=== PATIENT | male | born 1970 | race Caucasian/White ===

== ENCOUNTER 2017-08-01 22:35 | Emergency (ER) | payer OTHER ==
[~2017-08-01] VITALS: Ht 188 cm; Wt 127.0 kg
[~2017-08-01 22:35] MED LIST: CYCL10 PO; Naprosyn500 MG PO; Percocet 10-321 EACH PO; Ultram50 MG PO
[2017-08-01] MEDS ORDERED: MORP15ER PO (23:04)
[2017-08-01] MEDS ORDERED: OXYC10ER (23:04)
== END 2017-08-01 23:34 | disposition home or self-care (01) ==
LOC: ER 22:35
DX: N48.6 Induration penis plastica (principal); F17.210 Nicotine dependence, cigarettes, uncomplicated; Z79.899 Other long term (current) drug therapy; Z79.1 Long term (current) use of non-steroidal anti-inflammatories (NSAID)
CPT/HCPCS: 99282

== ENCOUNTER 2018-05-08 04:39 | Inpatient (IN) | payer OTHER ==
[~2018-05-08] VITALS: Ht 185.4 cm; Wt 122.9 kg
[~2018-05-08 04:39] MED LIST changes: +MORP15ER PO; +OXYC10ER
[2018-05-08 07:12] LABS: BASOPHILS ABSOLUTE AUTO 0.04 K/mm3 (0.00-0.23); BASOPHILS PERCENT AUTO 0 % (0-2); EOSINOPHILS ABSOLUTE AUTO 0.15 K/mm3 (0.00-0.68); EOSINOPHILS PERCENT AUTO 1 % (0-6); Hematocrit 44.9 % (37.0-53.0); Hemoglobin 15.1 g/dL (13.5-17.5); IMMATURE GRAN ABSOLUTE AUTO 0.04 K/mm3 (0.00-0.10); IMMATURE GRAN PERCENT AUTO 0 % (0-1); LYMPHOCYTES ABSOLUTE AUTO 2.17 K/mm3 (0.84-5.20); LYMPHOCYTES PERCENT AUTO 18 % (21-46); MONOCYTES PERCENT AUTO 10 % (4-13); Mean Corpuscular HGB 28.2 pg (26.0-34.0); Mean Corpuscular HGB Conc 33.6 g/dL (31.5-36.5); Mean Corpuscular Volume 84 fL (80-100); Mean Platelet Volume 9.6 fL (9.1-12.4); NEUTROPHILS ABSOLUTE AUTO 8.39 K/mm3 (1.96-9.15); NEUTROPHILS PERCENT AUTO 70 % (41-73); Platelet Count 252 K/mm3 (150-400); RDW Coefficient Variation 13.1 % (11.7-14.2); RDW Standard Deviation 39.7 fL (35.1-46.3); Red Blood Cell Count 5.36 M/mm3 (4.30-5.90); White Blood Cell Count 11.99 K/mm3 (4.00-11.30)
[2018-05-08 07:28] LABS: Alanine Aminotransfer (ALT/SGP 25 U/L (12-78); Albumin, Blood 3.3 g/dL (3.4-5.0); Albumin/Globulin Ratio 0.8 (0.8-1.8); Alk Phos 70 U/L (50-136); Anion Gap 8 mmol/L (6-16); Aspartate Aminotrans (AST/SGOT 13 U/L (12-37); Bilirubin, Total 0.3 mg/dL (0.1-1.0); Blood Urea Nitrogen 10 mg/dL (8-24); Bun/Creatinine Ratio 13.2 (12.0-20.0); CO2, Blood 26 mmol/L (21-32); Calcium, Blood 8.8 mg/dL (8.5-10.1); Chloride, Blood 103 mmol/L (98-108); Creatinine, Blood 0.76 mg/dL (0.60-1.20); Globulin, Blood 4.4 g/dL (2.2-4.0); Glomerular Filtration Rate >60 (60-); Glucose, Blood 93 mg/dL (70-99); Potassium, Blood 3.6 mmol/L (3.5-5.5); Sodium, Blood 137 mmol/L (136-145); Total Protein, Blood 7.7 g/dL (6.4-8.2)
[2018-05-08] MEDS ORDERED: Advil Pm Liqui1 EACH (15:04)
--- NOTE | 2018-05-08 15:22 | NUR ---
DEPRESSED PT VERBALIZED FEELING VERY DEPRESSED. STATES WOULD NEVER HARM SELF "BECAUSE I'M [employer]." STATED HAS BEEN DIAGNOSED W/CANCER. NOTIFIED DR PATEL; NO NEW ORDERS REGARDING DEPRESSION. ORDERED SOCIAL SERVICE CONSULT. PT HAS NO PCP. ORDERED PALLIATIVE CARE CONSULT. PT RESTING W/EYES CLOSED AT THIS TIME. CALL LIGHT IN REACH.
--- NOTE | 2018-05-08 16:52 | NUR ---
WARM WATER SOAK WARM WATER SOAK PER ORDERS TO L RING FINGER. PT SITTING ON EDGE OF BED. CALL LIGHT IN REACH.
--- NOTE | 2018-05-08 17:15 | NUR ---
SUMMARY PT ARRIVED TO UNIT FROM ED THIS AFTERNOON. EDEMA TO L RING FINGER W/LACERATION NOTED AT 2ND JOINT FROM TIP ON PALMAR SIDE OF HAND. PT RATED PAIN 10/10 UPON ARRIVAL TO UNIT. MEDICATED PER ORDERS FOR PAIN, REPORTED PAIN IMPROVED TO 8/10 W/MOVEMENT. SOAKED IN WARM WATER PER ORDERS, PATTED DRY AND PLACED BANDAID TO WOUND. PT INDEPENDENT IN ROOM. REPORTED FEELING DEPRESSED DUE TO 'S DX OF CANCER. REPORTED TO DR PATEL. PLACED PALLIATIVE CARE AND SOCIAL SERVICE CONSULT. PT PLEASANT AND COOPERATIVE. TEARFUL AT TIMES.
--- NOTE | 2018-05-08 21:20 | NUR ---
LEFT HAND SOAKED IN WARM WATER FOR 20 MINUTES THEN DRIED AND FRESH BANDAID PLACED. C/O PAIN 10/10 IN LEFT HAND. WILL MEDICATE PER E-MAR. SAFETY MEASURES IN PLACE. WILL CONTINUE TO MONITOR.
--- NOTE | 2018-05-09 01:56 | NUR ---
LEFT HAND SOAKED IN WARM WATER FOR 20 MINUTES THEN DRIED AND BANDAID APPLIED. WILL CONTINUE TO MONITOR.
[2018-05-09 05:29] LABS: BASOPHILS ABSOLUTE AUTO 0.02 K/mm3 (0.00-0.23); BASOPHILS PERCENT AUTO 0 % (0-2); EOSINOPHILS ABSOLUTE AUTO 0.15 K/mm3 (0.00-0.68); EOSINOPHILS PERCENT AUTO 2 % (0-6); Hematocrit 38.3 % (37.0-53.0); Hemoglobin 12.6 g/dL (13.5-17.5); IMMATURE GRAN ABSOLUTE AUTO 0.02 K/mm3 (0.00-0.10); IMMATURE GRAN PERCENT AUTO 0 % (0-1); LYMPHOCYTES ABSOLUTE AUTO 1.84 K/mm3 (0.84-5.20); LYMPHOCYTES PERCENT AUTO 22 % (21-46); MONOCYTES ABSOLUTE AUTO 0.84 K/mm3 (0.16-1.47); MONOCYTES PERCENT AUTO 10 % (4-13); Mean Corpuscular HGB 28.7 pg (26.0-34.0); Mean Corpuscular HGB Conc 32.9 g/dL (31.5-36.5); Mean Corpuscular Volume 87 fL (80-100); Mean Platelet Volume 9.5 fL (9.1-12.4); NEUTROPHILS ABSOLUTE AUTO 5.59 K/mm3 (1.96-9.15); NEUTROPHILS PERCENT AUTO 66 % (41-73); Platelet Count 187 K/mm3 (150-400); RDW Coefficient Variation 12.9 % (11.7-14.2); RDW Standard Deviation 41.4 fL (35.1-46.3); Red Blood Cell Count 4.39 M/mm3 (4.30-5.90); White Blood Cell Count 8.46 K/mm3 (4.00-11.30)
--- NOTE | 2018-05-09 06:21 | NUR ---
RECEIVED CALL FROM LAB STATING THAT PT'S POTASSIUM IS 6.9. LAB CALLED BACK AND INFORMED NURSING THAT A REDRAW WOULD OCCUR. PT'S IVF/IVABX STOPPED AND PIV FLUSHED WITH EASE. AFTER REDRAW COMPLETED IVABX RESTARTED. SAFETY MEASURES IN PLACE. WILL CONTINUE TO MONITOR.
--- NOTE | 2018-05-09 06:25 | NUR ---
LYING IN LEFT RECUMBANT WITH EYES CLOSED. REMAINS COMFORTABLE AT THIS TIME. NO FURTHER CHANGES SINCE START OF SHIFT. DENIES ANY NEEDS OR WANTS AT THIS TIME. SAFETY MEASURES IN PLACE. WILL GIVE HAND OFF TO ONCOMING SHIFT USING SBAR DURING BEDSIDE REPORT.
[2018-05-09 06:59] LABS: Anion Gap 6 mmol/L (6-16); Blood Urea Nitrogen 11 mg/dL (8-24); Bun/Creatinine Ratio 16.5 (12.0-20.0); CO2, Blood 28 mmol/L (21-32); Calcium, Blood 8.1 mg/dL (8.5-10.1); Chloride, Blood 106 mmol/L (98-108); Creatinine, Blood 0.67 mg/dL (0.60-1.20); Glomerular Filtration Rate >60 (60-); Glucose, Blood 92 mg/dL (70-99); Sodium, Blood 140 mmol/L (136-145)
--- NOTE | 2018-05-09 08:40 | NUR ---
PERFORMING WARM WATER SOAK.
--- NOTE | 2018-05-09 17:42 | NUR ---
SUMMARY NO ACUTE CHANGES T/O SHIFT. DR HAIRSTON ATTEMPTED TO PERFORM BEDSIDE I&D BUT PT COULD NOT TOLERATE. DR HAIRSTON WAS ABLE TO OPEN WOUND SITE AND SOAKED IN COOL WATER. PLACED WET TO DRY DRESSING PER DR HAIRSTON INSTRUCTION. PT TO BE NPO AT [place] FOR POSSIBLE I&D TOMORROW. SPOUSE AT BEDSIDE.
[2018-05-09 22:39] LABS: Vancomycin, Trough 13.4 ug/mL (5.0-10.0)
--- NOTE | 2018-05-10 07:26 | NUR ---
AMBULATING IN HALLS AT THIS TIME. REMAINS COMFORTABLE WITH NO FURTHER CHANGES SINCE START OF SHIFT. DENIES ANY NEEDS OR WANTS AT THIS TIME. SAFETY MEASURES IN PLACE. WILL GIVE HAND OFF TO ONCOMING SHIFT USING SBAR DURING BEDSIDE REPORT.
--- NOTE | 2018-05-10 15:52 | NUR ---
Wolfgang was open and welcoming. He told me about his 's recurrent cancer dx. She has a poor prognosis. He tells me that she is his first priority. He is concerned about their living situation. Apparently, his family is living in a poorly functioning camper trailer without heat. Wolfgang is adamant he will not ask for help from State or local agencies. He became tearful during prayer, and we then spoke at length about his emotions. I provided gentle pet counselor and spiritual direction. We had a good rapport. Wolfgang would benefit from continued spiritual support. I will continue to see him as schedule permits.
--- NOTE | 2018-05-10 17:18 | NUR ---
SHIFT SUMMARY PT DID NOT HAVE TO GO TO THE OR TODAY PER DR HAIRSTON. PT'S PAIN HAS BEEN WELL CONTROLLED. PT FOLLOWS INSTRUCTIONS FOR HOT SOAKS ROUTINELY. OUT TO SMOKE TWICE. PT PLEASANT AND COOPERATIVE.
--- NOTE | 2018-05-11 05:47 | NUR ---
PT VSS T/O NIGHT. PT REP LESS PAIN/SWELLING TO L RING FINGER. PT REP STRENGTH/MOBILITY SLIGHTLY IMPROVED. PT SOAKING WOUND AT BEDSIDE, NO SIG DRNG NOTED. IV ABX CONT PER ORDERS. PT NPO PER ORDERS FOR POSS OR TODAY. PT USING CALL LIGHT FOR ASSISTANCE, WILL CONT TO MONITOR UNTIL REP GIVEN TO ONCOMING RN.
[2018-05-11 06:46] LABS: Vancomycin, Trough 22.3 ug/mL (5.0-10.0)
--- NOTE | 2018-05-11 18:00 | NUR ---
SHIFT SUMMARY PT HAS DONE VERY WELL TODAY. ANXIOUS ABOUT TENATIVE DISCHARGE TOMORROW BUT WOUND IS LOOKING BETTER. AFEBRILE. AMBULATING FREQUENTLY. DRINKING AND EATING FREQUQNTLY.
--- NOTE | 2018-05-11 18:08 | NUR ---
Lengthy discussion with Wolfgang and his , Komal. Wolfgang was visibly irritated as he told me about Komal's struggle to find treatment for her cancer. It is unclear to me that his perception of physicians' responses are accurate. Regardless, they are both feeling she has been dismissed as a "lost cause." They believe there is more that can be done. Neither feel they have been told "why" she is no longer a candidate for aggressive treatment. I provided theraputic listening and emotional affirmation. Made several suggestions regarding insisting upon a clear, understandable explaination from Komal's physician's. They both deny any need to reach out for financial/nutritional help from resources in the community. Both express gratitude for being heard and understood. Wolfgang expects to be discharged in AM. I will remain available.
--- NOTE | 2018-05-11 22:24 | NUR ---
PT IS A&O X4. VSS. INDEPEND IN ROOM. SNACKS PROVIDED WITH EVENING MEDS PER PT REQ. HE REPORTS SELF CARE FOR WOUND. DRESSING IS C/D/I. REPORT GIVEN TO ELIGIO MORALES.
--- NOTE | 2018-05-11 23:14 | NUR ---
ASSUMED CARE. PT DOING WELL. MEDICATED FOR PAIN AND STARTED IV ABX. DRESSING CDI. NO C/O. CALL LIGHT IN REACH.
[2018-05-12 06:15] LABS: BASOPHILS ABSOLUTE AUTO 0.05 K/mm3 (0.00-0.23); BASOPHILS PERCENT AUTO 1 % (0-2); EOSINOPHILS ABSOLUTE AUTO 0.28 K/mm3 (0.00-0.68); EOSINOPHILS PERCENT AUTO 3 % (0-6); Hematocrit 44.9 % (37.0-53.0); IMMATURE GRAN ABSOLUTE AUTO 0.02 K/mm3 (0.00-0.10); IMMATURE GRAN PERCENT AUTO 0 % (0-1); LYMPHOCYTES ABSOLUTE AUTO 2.67 K/mm3 (0.84-5.20); LYMPHOCYTES PERCENT AUTO 31 % (21-46); MONOCYTES ABSOLUTE AUTO 0.95 K/mm3 (0.16-1.47); MONOCYTES PERCENT AUTO 11 % (4-13); Mean Corpuscular HGB 28.5 pg (26.0-34.0); Mean Corpuscular HGB Conc 33.4 g/dL (31.5-36.5); Mean Corpuscular Volume 85 fL (80-100); Mean Platelet Volume 9.1 fL (9.1-12.4); NEUTROPHILS ABSOLUTE AUTO 4.53 K/mm3 (1.96-9.15); NEUTROPHILS PERCENT AUTO 53 % (41-73); Platelet Count 249 K/mm3 (150-400); RDW Coefficient Variation 12.6 % (11.7-14.2); RDW Standard Deviation 39.2 fL (35.1-46.3); Red Blood Cell Count 5.26 M/mm3 (4.30-5.90)
[2018-05-12] MEDS ORDERED: Augmentin 875-1 EACH PO (10:42)
[2018-05-12] MEDS ORDERED: OXYC5 PO (10:43)
--- NOTE | 2018-05-12 13:26 | NUR ---
DISCHARGE PT EXCITED FOR DISCHARGE. SCRIPT GIVEN FOR OXYCODONE. ANTIBIOTIC CALLED TO [facility]. PT STATES UNDERSTANDING OF IMPORTANCE OF COMPLETING ANTIBIOTIC COURSE. GAUZE AND COBAN GIVEN. HAND WASHING DISCUSSED. STATES NUMBER TO REACH THEM AT IS [phone] FOR ANY ISSUES.
== END 2018-05-12 13:35 | disposition home or self-care (01) | DRG 558 ==
LOC: ER 04:39 → SURS 04:40 → ER 14:10 → SURS 14:26
PROVIDERS: Emergency Medicine; ADMIT Hospitalist
DX: M65.9 Synovitis and tenosynovitis, unspecified (principal); S61.215A Laceration without foreign body of left ring finger without damage to nail, initial encounter; Y93.E9 Activity, other interior property and clothing maintenance; Y92.009 Unspecified place in unspecified non-institutional (private) residence as the place of occurrence of the external cause; F17.200 Nicotine dependence, unspecified, uncomplicated
CPT/HCPCS: 36415; 73201; 80048; 80053; 80202; 85025; 90471; 90714; 96361; 96365; 96366; 96367; 96375; 96376; 99285-25; G0378; J0295; J2270; J2405; J3010; J3370; J3480; J7030; J7050; Q9967

== ENCOUNTER 2020-06-14 21:24 | Observation (INO) | payer OTHER ==
[~2020-06-14] VITALS: Ht 188 cm; Wt 127.0 kg
[~2020-06-14 21:24] MED LIST changes: +Advil Pm Liqui1 EACH; +Augmentin 875-1 EACH PO; +OXYC5 PO
[2020-06-14] MEDS ORDERED: Prozac40 MG PO (21:45)
[2020-06-14] MEDS ORDERED: TRAZ50 PO (21:45)
[2020-06-14 21:58] LABS: Source, Urine Clean Catch
[2020-06-14 22:08] LABS: Bilirubin, Urine Neg (Neg); Blood, Urine 1+ (Neg); Glucose Qualitative, Urine Neg (Neg); Ketones, Urine Neg (Neg); Leukocyte Esterase, Urine Neg (Neg); Nitrite, Urine Neg (Neg); Protein, Urine Neg (Neg); Specific Gravity, Urine 1.025 (1.003-1.022); Urobilinogen, Urine NORM (Normal)
[2020-06-14 22:16] LABS: BASOPHILS ABSOLUTE AUTO 0.05 K/mm3 (0.00-0.23); BASOPHILS PERCENT AUTO 1 % (0-2); EOSINOPHILS ABSOLUTE AUTO 0.22 K/mm3 (0.00-0.68); EOSINOPHILS PERCENT AUTO 2 % (0-6); Hematocrit 42.8 % (37.0-53.0); Hemoglobin 14.6 g/dL (13.5-17.5); IMMATURE GRAN ABSOLUTE AUTO 0.03 K/mm3 (0.00-0.10); IMMATURE GRAN PERCENT AUTO 0 % (0-1); LYMPHOCYTES ABSOLUTE AUTO 2.58 K/mm3 (0.84-5.20); LYMPHOCYTES PERCENT AUTO 29 % (21-46); MONOCYTES ABSOLUTE AUTO 0.88 K/mm3 (0.16-1.47); MONOCYTES PERCENT AUTO 10 % (4-13); Mean Corpuscular HGB 28.8 pg (26.0-34.0); Mean Corpuscular HGB Conc 34.1 g/dL (31.5-36.5); Mean Corpuscular Volume 84 fL (80-100); Mean Platelet Volume 8.9 fL (9.1-12.4); NEUTROPHILS ABSOLUTE AUTO 5.28 K/mm3 (1.96-9.15); NEUTROPHILS PERCENT AUTO 59 % (41-73); Platelet Count 223 K/mm3 (150-400); RDW Standard Deviation 39.4 fL (35.1-46.3); Red Blood Cell Count 5.07 M/mm3 (4.30-5.90); White Blood Cell Count 9.04 K/mm3 (4.00-11.30)
[2020-06-14 22:18] LABS: U Amphetamine Screen DETECTED; U Barbituate Screen Not Detected; U Benzodiazapine Screen Not Detected; U Buprenorphine Screen Not Detected; U Cannabinoids Screen DETECTED; U Cocaine Screen Not Detected; U Methadone Screen Not Detected; U Methamphetamine Screen DETECTED; U Opiates Screen Not Detected; U Oxycodone Screen Not Detected; U Phencyclidine Screen Not Detected; U Propoxyphene Screen Not Detected
[2020-06-14 22:28] LABS: Appearance, Urine Clear (Clear); Bacteria Not Seen /hpf; Color, Urine Yellow (P-Yellow); Red Blood Cells, Urine 0-2 /hpf (0-2); Squamous Epithelial Cells Not Seen /hpf (Few); White Blood Cells, Urine Not Seen /hpf (0-5)
[2020-06-14 22:41] LABS: Alanine Aminotransfer (ALT/SGP 52 U/L (12-78); Albumin, Blood 3.4 g/dL (3.4-5.0); Albumin/Globulin Ratio 0.9 (0.8-1.8); Alk Phos 92 U/L (50-136); Anion Gap 5 mmol/L (6-16); Aspartate Aminotrans (AST/SGOT 21 U/L (12-37); Bilirubin, Total 0.2 mg/dL (0.1-1.0); Blood Urea Nitrogen 17 mg/dL (8-24); Bun/Creatinine Ratio 23.7 (12.0-20.0); CO2, Blood 26 mmol/L (21-32); Calcium, Blood 9.2 mg/dL (8.5-10.1); Chloride, Blood 109 mmol/L (98-108); Creatinine, Blood 0.72 mg/dL (0.60-1.20); Ethanol (Alcohol), Blood, Med <3 mg/dL; Globulin, Blood 3.7 g/dL (2.2-4.0); Glomerular Filtration Rate >60 (60-); Glucose, Blood 98 mg/dL (70-99); Potassium, Blood 4.3 mmol/L (3.5-5.5); Salicylate <1.7 mg/dL (2.8-20.0); Sodium, Blood 140 mmol/L (136-145); Total Protein, Blood 7.1 g/dL (6.4-8.2)
[2020-06-14 22:42] LABS: Acetaminophen, Random <2.0 ug/mL (10.0-30.0)
[2020-06-15 14:26] LABS: Influenza A, PCR NEGATIVE (NEGATIVE); Influenza B, PCR NEGATIVE (NEGATIVE); Resp Syncytial Virus, PCR NEGATIVE (NEGATIVE); SARS-Cov-2 (COVID-19) PCR, MMC NEGATIVE (NEGATIVE)
== END 2020-06-15 22:30 ==
LOC: ER 21:24 → EOR 22:14
PROVIDERS: Emergency Medicine; Physician Assistant; ADMIT Emergency Medicine
DX: F31.9 Bipolar disorder, unspecified (principal); R45.851 Suicidal ideations; F17.210 Nicotine dependence, cigarettes, uncomplicated
CPT/HCPCS: 0241U; 36415; 80053; 81001; 85025; 96372; 99285; A9270; G0378; G0480; J1630

== ENCOUNTER 2021-02-14 12:17 | Emergency (ER) | payer OTHER ==
[~2021-02-14] VITALS: Ht 188 cm; Wt 127.0 kg
[~2021-02-14 12:17] MED LIST changes: +Prozac40 MG PO; +TRAZ50 PO
[2021-02-14] MEDS ORDERED: IBU800 MG PO (15:02)
[2021-02-14] MEDS ORDERED: Monodox100 MG PO (15:02)
== END 2021-02-14 15:13 | disposition home or self-care (01) ==
LOC: ER 12:17
DX: L02.411 Cutaneous abscess of right axilla (principal); F17.210 Nicotine dependence, cigarettes, uncomplicated
CPT/HCPCS: 10060; 87070; 87075; 87077; 87147; 87186; 87205; 99283-25; A9270

== ENCOUNTER 2021-03-22 12:08 | Emergency (ER) | payer OTHER ==
[~2021-03-22] VITALS: Ht 188 cm; Wt 127.0 kg
[~2021-03-22 12:08] MED LIST changes: +IBU800 MG PO; +Monodox100 MG PO
[2021-03-22] MEDS ORDERED: Ativan1 MG PO (12:35)
[2021-03-22 12:40] LABS: BASOPHILS ABSOLUTE AUTO 0.08 K/mm3 (0.00-0.23); BASOPHILS PERCENT AUTO 1 % (0-2); EOSINOPHILS ABSOLUTE AUTO 0.06 K/mm3 (0.00-0.68); EOSINOPHILS PERCENT AUTO 0 % (0-6); Hematocrit 45.2 % (37.0-53.0); Hemoglobin 15.7 g/dL (13.5-17.5); IMMATURE GRAN ABSOLUTE AUTO 0.08 K/mm3 (0.00-0.10); IMMATURE GRAN PERCENT AUTO 1 % (0-1); LYMPHOCYTES ABSOLUTE AUTO 1.66 K/mm3 (0.84-5.20); LYMPHOCYTES PERCENT AUTO 10 % (21-46); MONOCYTES ABSOLUTE AUTO 1.61 K/mm3 (0.16-1.47); MONOCYTES PERCENT AUTO 9 % (4-13); Mean Corpuscular HGB 28.3 pg (26.0-34.0); Mean Corpuscular HGB Conc 34.7 g/dL (31.5-36.5); Mean Corpuscular Volume 81 fL (80-100); NEUTROPHILS ABSOLUTE AUTO 13.63 K/mm3 (1.96-9.15); NEUTROPHILS PERCENT AUTO 80 % (41-73); Platelet Count 265 K/mm3 (150-400); RDW Coefficient Variation 12.3 % (11.7-14.2); RDW Standard Deviation 36.9 fL (35.1-46.3); Red Blood Cell Count 5.55 M/mm3 (4.30-5.90); White Blood Cell Count 17.12 K/mm3 (4.00-11.30)
[2021-03-22 13:04] LABS: Alanine Aminotransfer (ALT/SGP 37 U/L (12-78); Albumin, Blood 3.6 g/dL (3.4-5.0); Albumin/Globulin Ratio 0.8 (0.8-1.8); Alk Phos 89 U/L (50-136); Anion Gap 7 mmol/L (6-16); Aspartate Aminotrans (AST/SGOT 29 U/L (12-37); Bilirubin, Total 0.4 mg/dL (0.1-1.0); Blood Urea Nitrogen 17 mg/dL (8-24); Bun/Creatinine Ratio 13.9 (12.0-20.0); CO2, Blood 27 mmol/L (21-32); Calcium, Blood 9.8 mg/dL (8.5-10.1); Chloride, Blood 104 mmol/L (98-108); Creatinine, Blood 1.22 mg/dL (0.60-1.20); Globulin, Blood 4.5 g/dL (2.2-4.0); Glomerular Filtration Rate >60 (60-); Glucose, Blood 124 mg/dL (70-99); Potassium, Blood 4.1 mmol/L (3.5-5.5); Sodium, Blood 138 mmol/L (136-145); Total Protein, Blood 8.1 g/dL (6.4-8.2)
[2021-03-22 14:27] LABS: Source, Urine Voided
[2021-03-22 14:32] LABS: Appearance, Urine Clear (Clear); Bilirubin, Urine Neg (Neg); Blood, Urine 5+ (Neg); Color, Urine Yellow (P-Yellow); Glucose Qualitative, Urine Neg (Neg); Ketones, Urine Neg (Neg); Leukocyte Esterase, Urine 1+ (Neg); Nitrite, Urine Neg (Neg); Protein, Urine 1+ (Neg); Urobilinogen, Urine NORM (Normal)
[2021-03-22 14:39] LABS: Bacteria Few /hpf; Mucus Light (0-Heavy); Red Blood Cells, Urine 50-100 /hpf (0-2); Squamous Epithelial Cells Rare /hpf (Few)
[2021-03-22 16:24] LABS: Influenza A, PCR NEGATIVE (NEGATIVE); Influenza B, PCR NEGATIVE (NEGATIVE); Resp Syncytial Virus, PCR NEGATIVE (NEGATIVE)
[2021-03-22 17:04] LABS: SARS-Cov-2 (COVID-19) PCR, MMC POSITIVE (NEGATIVE)
== END 2021-03-22 22:18 | disposition short-term general hospital (02) ==
LOC: ER 12:08
PROVIDERS: Emergency Medicine; Physician Assistant
DX: U07.1 COVID-19 (principal); N13.2 Hydronephrosis with renal and ureteral calculous obstruction; N39.0 Urinary tract infection, site not specified; F17.210 Nicotine dependence, cigarettes, uncomplicated
CPT/HCPCS: 0241U; 36415; 74176; 80053; 81001; 83690; 85025; 87086; 96365; 96375; 96376; 99285-25; J0696; J1170; J1885; J2405; J7030

== ENCOUNTER 2021-03-25 21:43 | Observation (INO) | payer OTHER ==
[~2021-03-25] VITALS: Ht 188 cm; Wt 127.0 kg
[~2021-03-25 21:43] MED LIST changes: +Ativan1 MG PO
[2021-03-25 22:22] LABS: Source, Urine Clean Catch
[2021-03-25 22:30] LABS: Bilirubin, Urine Neg (Neg); Blood, Urine 5+ (Neg); Glucose Qualitative, Urine Neg (Neg); Ketones, Urine 1+ (Neg); Leukocyte Esterase, Urine 2+ (Neg); Nitrite, Urine Pos (Neg); Protein, Urine 4+ (Neg); Urobilinogen, Urine NORM (Normal)
[2021-03-25 22:40] LABS: U Amphetamine Screen DETECTED; U Barbituate Screen Not Detected; U Benzodiazapine Screen DETECTED; U Buprenorphine Screen Not Detected; U Cannabinoids Screen DETECTED; U Cocaine Screen Not Detected; U Methadone Screen Not Detected; U Methamphetamine Screen DETECTED; U Opiates Screen Not Detected; U Oxycodone Screen Not Detected; U Phencyclidine Screen Not Detected; U Propoxyphene Screen Not Detected
[2021-03-25 22:52] LABS: Appearance, Urine Cloudy (Clear); Color, Urine Red (P-Yellow)
[2021-03-25 22:53] LABS: Bacteria Many /hpf; Red Blood Cells, Urine TNTC /hpf (0-2); Squamous Epithelial Cells Rare /hpf (Few)
[2021-03-25 23:21] LABS: BASOPHILS ABSOLUTE AUTO 0.06 K/mm3 (0.00-0.23); BASOPHILS PERCENT AUTO 1 % (0-2); EOSINOPHILS PERCENT AUTO 2 % (0-6); Hematocrit 43.4 % (37.0-53.0); Hemoglobin 14.7 g/dL (13.5-17.5); IMMATURE GRAN ABSOLUTE AUTO 0.03 K/mm3 (0.00-0.10); IMMATURE GRAN PERCENT AUTO 0 % (0-1); LYMPHOCYTES ABSOLUTE AUTO 2.84 K/mm3 (0.84-5.20); LYMPHOCYTES PERCENT AUTO 25 % (21-46); MONOCYTES ABSOLUTE AUTO 1.01 K/mm3 (0.16-1.47); MONOCYTES PERCENT AUTO 9 % (4-13); Mean Corpuscular HGB 28.1 pg (26.0-34.0); Mean Corpuscular HGB Conc 33.9 g/dL (31.5-36.5); Mean Corpuscular Volume 83 fL (80-100); Mean Platelet Volume 9.3 fL (9.1-12.4); NEUTROPHILS ABSOLUTE AUTO 7.32 K/mm3 (1.96-9.15); NEUTROPHILS PERCENT AUTO 64 % (41-73); Platelet Count 254 K/mm3 (150-400); RDW Coefficient Variation 12.5 % (11.7-14.2); RDW Standard Deviation 37.9 fL (35.1-46.3); Red Blood Cell Count 5.24 M/mm3 (4.30-5.90); White Blood Cell Count 11.46 K/mm3 (4.00-11.30)
[2021-03-25 23:54] LABS: Acetaminophen, Random <2.0 ug/mL (10.0-30.0); Alanine Aminotransfer (ALT/SGP 33 U/L (12-78); Albumin, Blood 3.2 g/dL (3.4-5.0); Albumin/Globulin Ratio 0.8 (0.8-1.8); Alk Phos 80 U/L (50-136); Anion Gap 9 mmol/L (6-16); Aspartate Aminotrans (AST/SGOT 21 U/L (12-37); Bilirubin, Total 0.2 mg/dL (0.1-1.0); Blood Urea Nitrogen 17 mg/dL (8-24); Bun/Creatinine Ratio 20.3 (12.0-20.0); CO2, Blood 26 mmol/L (21-32); Calcium, Blood 8.9 mg/dL (8.5-10.1); Chloride, Blood 107 mmol/L (98-108); Creatinine, Blood 0.84 mg/dL (0.60-1.20); Ethanol (Alcohol), Blood, Med <3 mg/dL; Globulin, Blood 4.2 g/dL (2.2-4.0); Glomerular Filtration Rate >60 (60-); Glucose, Blood 109 mg/dL (70-99); Potassium, Blood 3.8 mmol/L (3.5-5.5); Salicylate <1.7 mg/dL (2.8-20.0); Sodium, Blood 142 mmol/L (136-145); Total Protein, Blood 7.4 g/dL (6.4-8.2)
[2021-03-26] MEDS ORDERED: SULFAMETHOXAZO1 EAC1 PO (03:17)
[2021-03-26] MEDS ORDERED: TRAZ50 PO (03:18)
[2021-03-26 03:25] LABS: Influenza A, PCR NEGATIVE (NEGATIVE); Influenza B, PCR NEGATIVE (NEGATIVE); Resp Syncytial Virus, PCR NEGATIVE (NEGATIVE); SARS-Cov-2 (COVID-19) PCR, MMC NEGATIVE (NEGATIVE)
== END 2021-03-26 21:40 ==
LOC: ER 21:43 → EOR 21:44
PROVIDERS: Physician Assistant; ADMIT Student in an Organized Health Care Education/Training Program
DX: F33.9 Major depressive disorder, recurrent, unspecified (principal); F17.210 Nicotine dependence, cigarettes, uncomplicated; Z79.899 Other long term (current) drug therapy
CPT/HCPCS: 0241U; 36415; 80053; 81001; 85025; 87086; 99285; A9270; G0378; G0480; Q3014

== ENCOUNTER 2021-11-14 13:31 | Observation (INO) | payer OTHER ==
[~2021-11-14] VITALS: Ht 188 cm; Wt 127.0 kg
[~2021-11-14 13:31] MED LIST changes: +SULFAMETHOXAZO1 EAC1 PO
[2021-11-14 13:59] LABS: Source, Urine Clean Catch
[2021-11-14 14:02] LABS: Appearance, Urine Hazy (Clear); Bilirubin, Urine Neg (Neg); Blood, Urine 5+ (Neg); Color, Urine Yellow (P-Yellow); Glucose Qualitative, Urine Neg (Neg); Ketones, Urine Neg (Neg); Leukocyte Esterase, Urine 2+ (Neg); Nitrite, Urine Neg (Neg); Protein, Urine 3+ (Neg); Specific Gravity, Urine 1.025 (1.003-1.022); Urobilinogen, Urine NORM (Normal)
[2021-11-14 14:15] LABS: U Amphetamine Screen DETECTED; U Barbituate Screen Not Detected; U Benzodiazapine Screen Not Detected; U Buprenorphine Screen Not Detected; U Cannabinoids Screen DETECTED; U Cocaine Screen Not Detected; U Methadone Screen Not Detected; U Methamphetamine Screen DETECTED; U Opiates Screen Not Detected; U Oxycodone Screen Not Detected; U Phencyclidine Screen Not Detected; U Propoxyphene Screen Not Detected
[2021-11-14 14:20] LABS: Bacteria Mod /hpf; Mucus Mod (0-Heavy); Red Blood Cells, Urine 50-100 /hpf (0-2); Squamous Epithelial Cells Not Seen /hpf (Few)
[2021-11-14 14:24] LABS: BASOPHILS ABSOLUTE AUTO 0.05 K/mm3 (0.00-0.23); BASOPHILS PERCENT AUTO 1 % (0-2); EOSINOPHILS PERCENT AUTO 2 % (0-6); Hematocrit 41.9 % (37.0-53.0); Hemoglobin 13.8 g/dL (13.5-17.5); IMMATURE GRAN ABSOLUTE AUTO 0.03 K/mm3 (0.00-0.10); IMMATURE GRAN PERCENT AUTO 0 % (0-1); LYMPHOCYTES ABSOLUTE AUTO 2.12 K/mm3 (0.84-5.20); LYMPHOCYTES PERCENT AUTO 25 % (21-46); MONOCYTES ABSOLUTE AUTO 0.89 K/mm3 (0.16-1.47); MONOCYTES PERCENT AUTO 11 % (4-13); Mean Corpuscular HGB Conc 32.9 g/dL (31.5-36.5); Mean Corpuscular Volume 82 fL (80-100); Mean Platelet Volume 9.2 fL (9.1-12.4); NEUTROPHILS ABSOLUTE AUTO 5.08 K/mm3 (1.96-9.15); NEUTROPHILS PERCENT AUTO 61 % (41-73); Platelet Count 250 K/mm3 (150-400); RDW Coefficient Variation 13.2 % (11.7-14.2); RDW Standard Deviation 38.8 fL (35.1-46.3); Red Blood Cell Count 5.12 M/mm3 (4.30-5.90); White Blood Cell Count 8.37 K/mm3 (4.00-11.30)
[2021-11-14] MEDS ORDERED: ALPR1 PO (14:28)
[2021-11-14 14:48] LABS: Ethanol (Alcohol), Blood, Med <3 mg/dL; Salicylate <1.7 mg/dL (2.8-20.0)
[2021-11-14 14:53] LABS: Acetaminophen, Random <2.0 ug/mL (10.0-30.0); Alanine Aminotransfer (ALT/SGP 33 U/L (12-78); Albumin, Blood 3.4 g/dL (3.4-5.0); Albumin/Globulin Ratio 0.9 (0.8-1.8); Alk Phos 80 U/L (50-136); Anion Gap 3 mmol/L (6-16); Aspartate Aminotrans (AST/SGOT 16 U/L (12-37); Bilirubin, Total 0.2 mg/dL (0.1-1.0); Blood Urea Nitrogen 20 mg/dL (8-24); Bun/Creatinine Ratio 26.1 (12.0-20.0); CO2, Blood 28 mmol/L (21-32); Calcium, Blood 9.1 mg/dL (8.5-10.1); Chloride, Blood 110 mmol/L (98-108); Creatinine, Blood 0.77 mg/dL (0.60-1.20); Globulin, Blood 3.6 g/dL (2.2-4.0); Glomerular Filtration Rate 109 (60-); Glucose, Blood 112 mg/dL (70-99); Potassium, Blood 4.2 mmol/L (3.5-5.5); Sodium, Blood 141 mmol/L (136-145)
[2021-11-14 15:18] LABS: Influenza A, PCR NEGATIVE (NEGATIVE); Influenza B, PCR NEGATIVE (NEGATIVE); Resp Syncytial Virus, PCR NEGATIVE (NEGATIVE); SARS-Cov-2 (COVID-19) PCR, MMC NEGATIVE (NEGATIVE)
== END 2021-11-15 13:02 | disposition home or self-care (01) ==
LOC: ER 13:31 → EOR 13:32
PROVIDERS: Physician Assistant; ADMIT Student in an Organized Health Care Education/Training Program
DX: F33.3 Major depressive disorder, recurrent, severe with psychotic symptoms (principal); F15.14 Other stimulant abuse with stimulant-induced mood disorder; F17.210 Nicotine dependence, cigarettes, uncomplicated; Z79.899 Other long term (current) drug therapy; Z20.822 Contact with and (suspected) exposure to COVID-19
CPT/HCPCS: 0241U; 36415; 80053; 81001; 85025; 87086; 93005; 93010; 99285-25; A9270; G0378; G0480; Q3014

== ENCOUNTER 2022-05-08 22:15 | Observation (INO) | payer OTHER ==
[~2022-05-08] VITALS: Ht 188 cm; Wt 127.0 kg
[~2022-05-08 22:15] MED LIST changes: +ALPR1 PO
[2022-05-08 23:33] LABS: Source, Urine Clean Catch
[2022-05-09 00:25] LABS: BASOPHILS PERCENT AUTO 1 % (0-2); EOSINOPHILS ABSOLUTE AUTO 0.28 K/mm3 (0.00-0.68); EOSINOPHILS PERCENT AUTO 2 % (0-6); Ethanol (Alcohol), Blood, Med <3 mg/dL; Hemoglobin 11.9 g/dL (13.5-17.5); IMMATURE GRAN ABSOLUTE AUTO 0.05 K/mm3 (0.00-0.10); IMMATURE GRAN PERCENT AUTO 0 % (0-1); LYMPHOCYTES ABSOLUTE AUTO 3.46 K/mm3 (0.84-5.20); LYMPHOCYTES PERCENT AUTO 25 % (21-46); MONOCYTES ABSOLUTE AUTO 1.71 K/mm3 (0.16-1.47); MONOCYTES PERCENT AUTO 12 % (4-13); Mean Corpuscular HGB Conc 31.3 g/dL (31.5-36.5); Mean Corpuscular Volume 83 fL (80-100); Mean Platelet Volume 9.3 fL (9.1-12.4); NEUTROPHILS PERCENT AUTO 59 % (41-73); NRBC ABSOLUTE 0.02 K/mm3 (0.00-0.02); NRBC Auto 0.1 /100 WBC (0.0-0.2); Platelet Count 475 K/mm3 (150-400); RDW Coefficient Variation 15.2 % (11.7-14.2); RDW Standard Deviation 45.8 fL (35.1-46.3); Red Blood Cell Count 4.57 M/mm3 (4.30-5.90); Salicylate 1.9 mg/dL (2.8-20.0)
[2022-05-09 00:29] LABS: Thyroid Stimulating Hormone 0.704 uIU/mL (0.360-4.800)
[2022-05-09 00:41] LABS: Bilirubin, Urine Neg (Neg); Blood, Urine 4+ (Neg); Glucose Qualitative, Urine Neg (Neg); Ketones, Urine Neg (Neg); Leukocyte Esterase, Urine Neg (Neg); Nitrite, Urine Neg (Neg); Protein, Urine 1+ (Neg); Urobilinogen, Urine NORM (Normal)
[2022-05-09 00:49] LABS: Acetaminophen, Random <2.0 ug/mL (10.0-30.0); Alanine Aminotransfer (ALT/SGP 35 U/L (12-78); Albumin, Blood 3.1 g/dL (3.4-5.0); Albumin/Globulin Ratio 0.7 (0.8-1.8); Alk Phos 72 U/L (50-136); Anion Gap 5 mmol/L (6-16); Aspartate Aminotrans (AST/SGOT 24 U/L (12-37); Bilirubin, Total 0.1 mg/dL (0.1-1.0); Blood Urea Nitrogen 9 mg/dL (8-24); Bun/Creatinine Ratio 12.1 (12.0-20.0); CO2, Blood 28 mmol/L (21-32); Calcium, Blood 8.9 mg/dL (8.5-10.1); Chloride, Blood 108 mmol/L (98-108); Creatinine, Blood 0.74 mg/dL (0.60-1.20); Globulin, Blood 4.3 g/dL (2.2-4.0); Glomerular Filtration Rate 110 (60-); Glucose, Blood 118 mg/dL (70-99); Potassium, Blood 3.5 mmol/L (3.5-5.5); Sodium, Blood 141 mmol/L (136-145); Total Protein, Blood 7.4 g/dL (6.4-8.2)
[2022-05-09 01:11] LABS: U Amphetamine Screen DETECTED; U Barbituate Screen Not Detected; U Benzodiazapine Screen Not Detected; U Buprenorphine Screen Not Detected; U Cannabinoids Screen DETECTED; U Cocaine Screen Not Detected; U Methadone Screen Not Detected; U Methamphetamine Screen DETECTED; U Opiates Screen Not Detected; U Oxycodone Screen Not Detected; U Phencyclidine Screen Not Detected; U Propoxyphene Screen Not Detected
[2022-05-09 01:17] LABS: Appearance, Urine Clear (Clear); Color, Urine Yellow (P-Yellow)
[2022-05-09 01:18] LABS: Bacteria Rare /hpf; Squamous Epithelial Cells Rare /hpf (Few); White Blood Cells, Urine 0-2 /hpf (0-5)
[2022-05-09 06:13] LABS: Influenza A, PCR NEGATIVE (NEGATIVE); Influenza B, PCR NEGATIVE (NEGATIVE); Resp Syncytial Virus, PCR NEGATIVE (NEGATIVE); SARS-Cov-2 (COVID-19) PCR, MMC NEGATIVE (NEGATIVE)
== END 2022-05-09 18:57 | disposition home or self-care (01) ==
LOC: ER 22:15 → EOR 22:16
PROVIDERS: Emergency Medicine; ADMIT Student in an Organized Health Care Education/Training Program
DX: F32.A Depression, unspecified (principal); F15.20 Other stimulant dependence, uncomplicated; Z20.822 Contact with and (suspected) exposure to COVID-19
CPT/HCPCS: 0241U; 36415; 80053; 81001; 83605; 84436; 84443; 85025; 86592; 93005; 93010; A9270; G0480; J1885

== ENCOUNTER 2023-01-05 17:45 | Emergency (ER) | payer OTHER ==
[~2023-01-05] VITALS: Ht 188 cm; Wt 108.9 kg
== END 2023-01-05 19:30 | disposition home or self-care (01) ==
LOC: ER 17:45
DX: M19.011 Primary osteoarthritis, right shoulder (principal); F17.200 Nicotine dependence, unspecified, uncomplicated
CPT/HCPCS: 73030; 99284-25

== ENCOUNTER 2023-02-16 04:15 | Emergency (ER) | payer MEDICARE ==
[~2023-02-16] VITALS: Ht 188 cm; Wt 127.0 kg
[2023-02-16 05:20] LABS: BASOPHILS ABSOLUTE AUTO 0.09 K/mm3 (0.00-0.23); BASOPHILS PERCENT AUTO 1 % (0-2); EOSINOPHILS PERCENT AUTO 1 % (0-6); Hematocrit 45.4 % (37.0-53.0); Hemoglobin 15.3 g/dL (13.5-17.5); IMMATURE GRAN ABSOLUTE AUTO 0.04 K/mm3 (0.00-0.10); IMMATURE GRAN PERCENT AUTO 0 % (0-1); LYMPHOCYTES ABSOLUTE AUTO 2.95 K/mm3 (0.84-5.20); LYMPHOCYTES PERCENT AUTO 21 % (21-46); MONOCYTES ABSOLUTE AUTO 1.71 K/mm3 (0.16-1.47); MONOCYTES PERCENT AUTO 12 % (4-13); Mean Corpuscular HGB 29.2 pg (26.0-34.0); Mean Corpuscular HGB Conc 33.7 g/dL (31.5-36.5); Mean Corpuscular Volume 87 fL (80-100); Mean Platelet Volume 9.7 fL (9.1-12.4); NEUTROPHILS PERCENT AUTO 65 % (41-73); Platelet Count 386 K/mm3 (150-400); RDW Coefficient Variation 14.3 % (11.7-14.2); RDW Standard Deviation 45.3 fL (35.1-46.3); Red Blood Cell Count 5.24 M/mm3 (4.30-5.90); White Blood Cell Count 14.09 K/mm3 (4.00-11.30)
[2023-02-16 05:59] LABS: Bun/Creatinine Ratio 17.9 (12.0-20.0); C-REACTIVE PROTEIN, EXT RANGE 0.723 mg/dL (0.000-0.300); Calcium, Blood 8.8 mg/dL (8.5-10.1); Creatinine, Blood 0.73 mg/dL (0.60-1.20)
[2023-02-16 06:12] LABS: Source, Urine Clean Catch
[2023-02-16 06:14] LABS: Appearance, Urine Clear (Clear); Bilirubin, Urine Neg (Neg); Blood, Urine 1+ (Neg); Color, Urine Yellow (P-Yellow); Glucose Qualitative, Urine Neg (Neg); Ketones, Urine Neg (Neg); Leukocyte Esterase, Urine 1+ (Neg); Nitrite, Urine Neg (Neg); Protein, Urine 1+ (Neg); Specific Gravity, Urine 1.025 (1.003-1.022); Urobilinogen, Urine NORM (Normal)
[2023-02-16 06:28] LABS: Squamous Epithelial Cells Rare /hpf (Few); White Blood Cells, Urine 0-2 /hpf (0-5)
[2023-02-16 06:29] LABS: Bacteria Few /hpf
[2023-02-16 06:31] LABS: Mucus Heavy (0-Heavy)
[2023-02-16] MEDS ORDERED: Prednisone50 MG PO (13:25)
[2023-02-16] MEDS ORDERED: Robaxin750 MG PO (13:26)
[2023-02-16] MEDS ORDERED: Norco 7.5-3251 EACH PO (13:26)
[2023-02-16 14:00] VITALS: BP 142/88
[2023-02-17] MEDS ORDERED: DERMACINRX LID1 EACH TD (08:37)
== END 2023-02-16 14:28 | disposition home or self-care (01) ==
LOC: ER 04:15
PROVIDERS: Emergency Medicine
DX: M54.16 Radiculopathy, lumbar region (principal); F17.200 Nicotine dependence, unspecified, uncomplicated
CPT/HCPCS: 72100; 72158; 80048; 81001; 85025; 85651; 86140; 87086; 96374-59; 96375-59; 99284-25; A9270; A9579; J1170; J1885

== ENCOUNTER 2023-02-17 07:03 | Emergency (ER) | payer MEDICARE, OTHER ==
[~2023-02-17] VITALS: Ht 188 cm; Wt 127.0 kg
[~2023-02-17 07:03] MED LIST changes: +Norco 7.5-3251 EACH PO; +Prednisone50 MG PO; +Robaxin750 MG PO
[2023-02-17] MEDS ORDERED: DERMACINRX LID1 EACH TD (08:37)
[2023-02-17 08:45] VITALS: BP 128/78
== END 2023-02-17 08:45 | disposition home or self-care (01) ==
LOC: ER 07:03
DX: M54.16 Radiculopathy, lumbar region (principal); M62.830 Muscle spasm of back; Z79.52 Long term (current) use of systemic steroids; Z79.899 Other long term (current) drug therapy; F17.200 Nicotine dependence, unspecified, uncomplicated
CPT/HCPCS: 96374; 99284-25; A9270; J1885

== ENCOUNTER 2023-02-27 15:48 | Emergency (ER) | payer MEDICARE, OTHER ==
[~2023-02-27] VITALS: Ht 188 cm; Wt 127.0 kg
[~2023-02-27 15:48] MED LIST changes: +DERMACINRX LID1 EACH TD
[2023-02-27 16:51] VITALS: BP 138/92
== END 2023-02-27 19:39 | disposition home or self-care (01) ==
LOC: ER 15:48
DX: S63.502A Unspecified sprain of left wrist, initial encounter (principal); X50.9XXA Other and unspecified overexertion or strenuous movements or postures, initial encounter; F17.200 Nicotine dependence, unspecified, uncomplicated; Z79.899 Other long term (current) drug therapy
CPT/HCPCS: 29125; 73110; 96372-59; 99283-25; J1885

== ENCOUNTER 2024-01-06 01:40 | Observation (INO) | payer MEDICARE, OTHER ==
[~2024-01-06] VITALS: Ht 188 cm; Wt 127.0 kg
[~2024-01-06 01:40] MED LIST changes: +ACET325 PO; +DOXY100 PO; +IBUP400 PO; +LORA.5 PO; +OXAYDO5 M1 PO; +TAMS.4ER PO
[2024-01-06 06:22] LABS: BASOPHILS ABSOLUTE AUTO 0.11 K/mm3 (0.00-0.23); BASOPHILS PERCENT AUTO 1 % (0-2); EOSINOPHILS ABSOLUTE AUTO 0.26 K/mm3 (0.00-0.68); EOSINOPHILS PERCENT AUTO 2 % (0-6); Hematocrit 45.8 % (37.0-53.0); Hemoglobin 15.5 g/dL (13.5-17.5); IMMATURE GRAN ABSOLUTE AUTO 0.03 K/mm3 (0.00-0.10); IMMATURE GRAN PERCENT AUTO 0 % (0-1); LYMPHOCYTES ABSOLUTE AUTO 4.43 K/mm3 (0.84-5.20); LYMPHOCYTES PERCENT AUTO 31 % (21-46); MONOCYTES ABSOLUTE AUTO 1.73 K/mm3 (0.16-1.47); MONOCYTES PERCENT AUTO 12 % (4-13); Mean Corpuscular HGB 28.8 pg (26.0-34.0); Mean Corpuscular HGB Conc 33.8 g/dL (31.5-36.5); Mean Corpuscular Volume 85 fL (80-100); Mean Platelet Volume 9.3 fL (9.1-12.4); NEUTROPHILS ABSOLUTE AUTO 7.57 K/mm3 (1.96-9.15); NEUTROPHILS PERCENT AUTO 54 % (41-73); Platelet Count 422 K/mm3 (150-400); RDW Coefficient Variation 14.5 % (11.7-14.2); RDW Standard Deviation 44.7 fL (35.1-46.3); Red Blood Cell Count 5.38 M/mm3 (4.30-5.90); White Blood Cell Count 14.13 K/mm3 (4.00-11.30)
[2024-01-06 06:43] LABS: Ethanol (Alcohol), Blood, Med <3 mg/dL; Salicylate <1.7 mg/dL (2.8-20.0); Thyroid Stimulating Hormone 0.745 uIU/mL (0.360-4.800); Thyroxine (T4) 10.1 ug/dL (4.5-12.1)
[2024-01-06 06:50] LABS: Alanine Aminotransfer (ALT/SGP 36 U/L (12-78); Albumin, Blood 3.6 g/dL (3.4-5.0); Albumin/Globulin Ratio 0.8 (0.8-1.8); Alk Phos 95 U/L (50-136); Anion Gap 11 mmol/L (3-11); Aspartate Aminotrans (AST/SGOT 30 U/L (12-37); Bilirubin, Total 0.7 mg/dL (0.1-1.0); Blood Urea Nitrogen 14 mg/dL (8-24); Bun/Creatinine Ratio 20.9 (12.0-20.0); CO2, Blood 26 mmol/L (21-32); Calcium, Blood 9.2 mg/dL (8.5-10.1); Chloride, Blood 107 mmol/L (98-108); Creatinine, Blood 0.67 mg/dL (0.60-1.20); Globulin, Blood 4.5 g/dL (2.2-4.0); Glomerular Filtration Rate 112 (60-); Glucose, Blood 101 mg/dL (70-99); Potassium, Blood 3.6 mmol/L (3.5-5.5); Sodium, Blood 140 mmol/L (136-145); Total Protein, Blood 8.1 g/dL (6.4-8.2)
[2024-01-06 06:56] LABS: Acetaminophen, Random <2.0 ug/mL (10.0-30.0)
[2024-01-06] MEDS ORDERED: OLANZapine 10 MG Tab PO ONE (07:15)
[2024-01-06 09:35] LABS: Source, Urine Clean Catch
[2024-01-06 09:45] LABS: Bilirubin, Urine Neg (Neg); Blood, Urine 2+ (Neg); Glucose Qualitative, Urine Neg (Neg); Ketones, Urine 1+ (Neg); Leukocyte Esterase, Urine 1+ (Neg); Nitrite, Urine Neg (Neg); Protein, Urine 2+ (Neg); Urobilinogen, Urine NORM (Normal)
[2024-01-06 09:52] LABS: Appearance, Urine Hazy (Clear); Color, Urine Yellow (P-Yellow)
[2024-01-06 09:53] LABS: Amorphous Light (0-Heavy); Bacteria Rare /hpf; Squamous Epithelial Cells Not Seen /hpf (Few)
[2024-01-06 10:03] LABS: U Amphetamine Screen DETECTED; U Barbituate Screen Not Detected; U Benzodiazapine Screen Not Detected; U Buprenorphine Screen Not Detected; U Cannabinoids Screen DETECTED; U Cocaine Screen DETECTED; U Methadone Screen Not Detected; U Methamphetamine Screen DETECTED; U Opiates Screen Not Detected; U Oxycodone Screen Not Detected; U Phencyclidine Screen Not Detected
[2024-01-06] MEDS ORDERED: TraZODone HCl 50 MG Tab PO ONE (22:15)
[2024-01-07 09:52] VITALS: BP 128/68
[2024-01-07] MEDS ORDERED: Melatonin 3 MG Tab PO PRN (16:20)
[2024-01-07] MEDS ORDERED: TraZODone HCl 50 MG Tab PO PRN (16:25)
[2024-01-07] MEDS ORDERED: OLANZapine ODT 10 MG Tab MM PRN (16:25)
[2024-01-07] MEDS ORDERED: Haloperidol Lactate Inj. 5 MG/ML Injection IM PRN ×2 (16:25)
[2024-01-07] MEDS ORDERED: Haloperidol 5 MG Tab PO PRN (16:25)
[2024-01-07] MEDS ORDERED: OLANZapine 10 MG Vial IM PRN (16:25)
[2024-01-07] MEDS ORDERED: Acetaminophen 325 MG TABLET PO PRN (16:25)
[2024-01-07] MEDS ORDERED: Ibuprofen 600 MG Tab PO PRN (16:30)
[2024-01-07] MEDS ORDERED: Aluminum Hydroxide 320MG/5ML 473 ML PO PRN (16:30)
[2024-01-07] MEDS ORDERED: Mirtazapine 15 MG Tab PO PRN (16:30)
[2024-01-08] MEDS ORDERED: Multivitamins 1 Tab PO SCH (09:00)
== END 2024-01-07 16:10 | disposition other institution (70) ==
LOC: ER 01:40 → EOR 01:41
PROVIDERS: ADMIT Emergency Medicine
DX: F32.A Depression, unspecified (principal); R45.851 Suicidal ideations; F19.10 Other psychoactive substance abuse, uncomplicated; F17.210 Nicotine dependence, cigarettes, uncomplicated; Z79.899 Other long term (current) drug therapy
CPT/HCPCS: 80053; 80320; 81001; 84436; 84443; 85025; 87086; 99285; A9270; G0378; G0480

== ENCOUNTER 2024-01-07 13:01 | Inpatient (IN) | payer MEDICARE, OTHER ==
[~2024-01-07] VITALS: Ht 188 cm; Wt 127.0 kg
[2024-01-07] MEDS ORDERED: Acetaminophen 325 MG TABLET PO PRN (16:40)
[2024-01-07] MEDS ORDERED: Aluminum Hydroxide 320MG/5ML 473 ML PO PRN (16:40)
[2024-01-07] MEDS ORDERED: Ibuprofen 600 MG Tab PO PRN (16:40)
[2024-01-07] MEDS ORDERED: TraZODone HCl 50 MG Tab PO PRN (16:40)
[2024-01-07] MEDS ORDERED: Melatonin 3 MG Tab PO PRN (16:40)
[2024-01-07] MEDS ORDERED: OLANZapine 10 MG Vial IM PRN (16:45)
[2024-01-07] MEDS ORDERED: OLANZapine ODT 10 MG Tab MM PRN (16:45)
[2024-01-07] MEDS ORDERED: Mirtazapine 15 MG Tab PO PRN (16:45)
--- NOTE | 2024-01-07 17:43 | NUR ---
ADMITTED AT 1614 TODAY. NEEDS HYGEINE CARE. HE WILL SHOWER AFTER DINER. CAME IN [place]. STATED HE HAS NO FAMILY AND IS HOMELESS, HIS DAUGHTER CALLED FROM ASSISTED AND IT MADE HIM WORSE. HE CLAIMS HE WAS DOING FENTANYL AND SMOKING WEED. WANTED TO . HE PASSED OUT AND THEN CAME AWAKE IN THE HOSPITAL ON "NARCAN DRIP" HE MUST HAVE HAD AN IV DRIP WITH DOSES OF NARCAN. HIS 4 YEARS AGO. HAS NO HOPE PER PT. WILL CONTINUE TO MONITOR.
[2024-01-07 19:22] VITALS: BP 143/84
--- NOTE | 2024-01-08 04:26 | NUR ---
PT WAS SLEEPING AT START OF SHIFT, BUT WOKE FOR MEDICATIONS AND SNACKS. HYGIENE POOR, BUT WAS ENCOURAGED. PT WAS COOPERATIVE WITH MINIMAL CONVERSATION AND WAS COMPLIANT WITH MEDICATIONS. DENIES SI/HI AND AVH. PT IS CURRENTLY IN BED WITH EYES CLOSED RESTING COMFORTABLY IN NAD. RESPIRATIONS EVEN AND UNLABORED. CHECKS DONE Q15.
[2024-01-08] MEDS ORDERED: Multivitamins 1 Tab PO SCH (09:00)
--- NOTE | 2024-01-08 16:32 | NUR ---
SHIFT SUMMARY: PT COOPERATIVE WITH CARE AND COMPLIANT WITH MEDICATIONS. PT WAS UP FOR MEALS AND SPOKE WITH OT. HE WAS IN HIS ROOM THE MAJORITY OF THE DAY AND APPEARED TO BE SLEEPING.
[2024-01-08] MEDS ORDERED: Nicotine 21 MG PATCH TOP SCH (18:00)
[2024-01-08 20:06] VITALS: BP 145/86
--- NOTE | 2024-01-09 04:14 | NUR ---
PT WAS VISIBLE IN THE [place] WATCHING TELEVISION WITH PEERS. HYGIENE FAIR. PT WAS COMPLIANT WITH MEDICATIONS AND DENIES SI/HI AND AVH, THOUGH HE HAS ADMITTED TO HEARING VOICES IN THE PAST. PT SAYS HE IS FOCUSED ON HIS CHILDREN AND IS INTERESTED IN TATTOO REMOVAL. PROVIDED PT WITH A LIST OF RESOURCES OFFERING FREE TATTOO REMOVAL. PT IS CURRENTLY IN BED WITH EYES CLOSED SLEEPING COMFORTABLY WITH RESPIRATIONS EVEN AND UNLABORED. CHECKS DONE Q15.
[2024-01-09 08:43] VITALS: BP 125/86
[2024-01-09 08:48] VITALS: BP 149/104
[2024-01-09] MEDS ORDERED: buPROPion HCL 150 MG TAB.SR.12H PO SCH (09:00)
--- NOTE | 2024-01-09 11:06 | NUR ---
PT ALERT, ORIENTED AND COOPERATIVE. COMPLIANT WITH MEDICATIONS. DENIES SI, HI OR AVH. DISCUSSED DESIRE TO STOP USING METH AND GET INTO TREATMENT. STATES THAT HE NEEDS TO GET BACK ON HIS REGULAR MEDICATIONS. STATES THAT HE USED TO TAKE 300 MG OF TRAZADONE AND 200 MG OF SEROQUEL AT BEDTIME WELL AN UNKNOWN MEDICATION FOR ANXIETY. PROVIDER NOTIFIED AND NEW ORDERS NOTED. PT PARTICIPATING IN DEPT MILIEU.
[2024-01-09] MEDS ORDERED: Peg 400/Hypromellose/Glycerin 15 DROP/ML BTL BOTHEYES SCH (16:30)
--- NOTE | 2024-01-09 17:23 | NUR ---
SHIFT SUMMARY: PT ALERT, ORIENTED AND COOPERATIVE. DENIED SI, HI OR AVH. SPOKE ON THE PHONE WITH HIS SON. ENGAGED IN UNIT MILIE[place] AND MEALS.
[2024-01-09 20:11] VITALS: BP 138/92
[2024-01-09] MEDS ORDERED: QUEtiapine Fumarate 200 MG Tab PO SCH (21:00)
--- NOTE | 2024-01-10 04:18 | NUR ---
PT IS VISIBLE ON THE UNIT AND INTERACTS APPRORPIATELY WITH PEERS. HYGIENE ADEQUATE. PT IS COMPLIANT WITH MEDICATIONS AND DENIES SI/HI. PT C/O INSOMNIA AND RESTLESS LEGS EVEN AFTER RECEIVING PRNS FOR SLEEP. PT IS CURRENTLY RESTING IN BED WITH EYES CLOSED IN NAD. RESPIRATIONS EVEN AND UNLABORED. CHECKS DONE Q15.
--- NOTE | 2024-01-10 09:06 | NUR ---
PT UP FOR BREAKFAST THIS AM. WENT BACK TO HIS ROOM AND IS LAYING DOWN. HE REQUESTED TO WAIT UNTIL LATER THIS MORNING FOR HIS MEDICATIONS.
[2024-01-10 09:14] VITALS: BP 105/56
--- NOTE | 2024-01-10 13:17 | NUR ---
PT IN WITH ANNA FROM [employer]S AUDITOR.
[2024-01-10] MEDS ORDERED: Propranolol HCL 20 MG TAB PO SCH (16:30)
--- NOTE | 2024-01-10 16:58 | NUR ---
SHIFT SUMMARY: PT ALERT, CALM AND COOPERATIVE. VISITED WITH HIS SON, ARMANDO DURING THE AFTERNOON. NEW RX ORDERS STARTED THIS EVENING. HE ENGAGED WITH DEPT MILIE[facility] AND MEALS. DENIES SI, HI OR AVH.
--- NOTE | 2024-01-11 04:29 | NUR ---
PT IS VISIBLE ON THE UNIT AND INTERACTS APPROPRIATELY WITH PEERS. HYGIENE ADEQUATE. PT HAD A BRIGHT MOOD AND WAS SMILING AND LAUGHING. PT IS COMPLIANT WITH MEDICATIONS AND DENIES SI/HI AND AVH. PT HAD DIFFICULTY FALLING ASLEEP R/T RESTLESS LEGS AND SAID MEDICATION GIVEN FOR IT WAS INEFFECTIVE. PT EVENTUALLY WAS OBSERVED RESTING IN BED WITH EYES CLOSED IN NAD. RESPIRATIONS EVEN AND UNLABORED. CHECKS DONE Q15.
[2024-01-11 12:00] VITALS: BP 120/92
--- NOTE | 2024-01-11 12:27 | NUR ---
PT DENIED SI, HI, ANXIETY, AVH AND PAIN UNLESS HE RAISES HIS ARMS THEN HE HAS SHOULDER PAIN. HE REPORTED HIS MOOD "IT'S FINE." HE APPEARED TO REST IN HIS BED MOST OF THE MORNING. HE GOT UP FOR LUNCH AND IS NOW WATCHING A MOVIE WITH PEERS.
[2024-01-12 03:22] VITALS: BP 143/81
--- NOTE | 2024-01-12 05:21 | NUR ---
Patient spent most of the evening watching TV and socializing with peers. He was cooperative with assessment. He took his medication without issue. He denied new concerns at this time. Plan of care ongoing. He appeared to be sleeping in his bed for 7 hours.
[2024-01-12 08:35] VITALS: BP 136/83
--- NOTE | 2024-01-12 13:17 | NUR ---
Pt Discharge Planning Reached out to pts [facility] Customer Experience Intern- Sonia Ramirez to support in helping get this patient into [facility]. Will be connecting him with his pcp and requesting appointments with [facility]. Pt may have to go to [facility]. SW requested to also give pt opportunity to access grief groups will ensure he has that information when pt leaves.
--- NOTE | 2024-01-12 13:33 | NUR ---
Pt Appointment for Discharge Pt is aassigned to Dr. Burrell, however when calling Dr Rosales he has declined to see this pt due to multiple no shows. I will let his A piano case and bench assembler, Sonia Fuchs know of this. Pt does want outpatient support from [facility] so will have RNs put in discharge to go to [facility] and get wrap around services with them in all areas. Will touch base with Sophia Andrews to see how we can get him a PCP appointment in motion at his [facility] appointment when he d/c's
--- NOTE | 2024-01-12 17:07 | NUR ---
SHIFT SUMMARY: PT ALERT, ORIENTED AND COOPERATIVE WITH CARE. COMPLIANT WITH MEDICATIONS. ENGAGED IN GROUPS, MEALS AND DEPT [facility]. DISCUSSED DISCHARGE PLAN TENTATIVE for 01/12. HE PLANS TO DISCHARGE TO HIS SON'S HOUSE. DENIES SI, HI OR AVH.
[2024-01-12 21:11] VITALS: BP 128/78
[2024-01-12] MEDS ORDERED: rOPINIRole HCl 0.25 MG Tab PO ONE (22:30)
--- NOTE | 2024-01-13 04:54 | NUR ---
Patient spent most of the evening socializing with peers and watching TV. He was cooperative with assessment. He took his scheduled medication and requested PRN for sleep and agitation without issue. He is able to make his needs known. He denied new concerns at this time. Plan of care ongoing. He approached the nurses station at 2004 complaining of restless legs. Provider was contacted and one time order for Requip was administered. He returned to bed and was able to rest for a few hours. He was up at 0130 and 0430 requesting a snack each time. Once he had a small snack, he returned to bed each time. He appeared to be sleeping in his bed for 6 hours.
[2024-01-13 09:01] VITALS: BP 130/78
[2024-01-13] MEDS ORDERED: PROP10 PO (11:49)
[2024-01-13] MEDS ORDERED: BUPR150ER PO (11:49)
[2024-01-13] MEDS ORDERED: QUET200 PO (11:50)
--- NOTE | 2024-01-13 12:28 | NUR ---
PT COOPERATIVE WITH CARE, MED COMPLIANT AND DENIED SI, HI, AVH, PAIN AND ANXIETY. HE RESTED IN BED MOST OF THE MORNING. HE ATE LUNCH AND HAS BEEN OUT IN THE PT MILIE[facility]. PT DISCHARGED WITH ALL OF HIS BELONGINGS FROM SECURITY AND THE ONES STORED ON THE UNIT. DISCHARGE INFORMATION DISCUSSED WITH PT AND PT SIGNED UNDERSTANDING. EDUCATION PROVIDED.
--- NOTE | 2024-01-13 12:48 | NUR ---
Pt DC Patient has been discharged belongings have been returned from the safe and with Security had some personal items they have put away upon entry to hospital. Pt left at [phone]
== END 2024-01-13 12:33 | disposition home or self-care (01) | DRG 885 ==
LOC: BHU 13:01
PROVIDERS: ADMIT Student in an Organized Health Care Education/Training Program
DX: F33.2 Major depressive disorder, recurrent severe without psychotic features (principal); F15.20 Other stimulant dependence, uncomplicated; R45.851 Suicidal ideations; R63.4 Abnormal weight loss
CPT/HCPCS: A9270

== ENCOUNTER 2024-06-06 15:59 | Observation (INO) | payer MEDICARE, OTHER ==
[~2024-06-06] VITALS: Ht 188 cm; Wt 136.1 kg
[~2024-06-06 15:59] MED LIST changes: +BUPR150ER PO; +PROP10 PO; +QUET200 PO
[2024-06-06 16:15] VITALS: BP 141/110
[2024-06-06 16:57] LABS: BASOPHILS ABSOLUTE AUTO 0.06 K/mm3 (0.00-0.23); BASOPHILS PERCENT AUTO 0 % (0-2); EOSINOPHILS ABSOLUTE AUTO 0.28 K/mm3 (0.00-0.68); EOSINOPHILS PERCENT AUTO 2 % (0-6); Hematocrit 45.5 % (37.0-53.0); Hemoglobin 14.9 g/dL (13.5-17.5); IMMATURE GRAN ABSOLUTE AUTO 0.08 K/mm3 (0.00-0.10); IMMATURE GRAN PERCENT AUTO 1 % (0-1); LYMPHOCYTES ABSOLUTE AUTO 2.49 K/mm3 (0.84-5.20); LYMPHOCYTES PERCENT AUTO 14 % (21-46); MONOCYTES PERCENT AUTO 15 % (4-13); Mean Corpuscular HGB 28.9 pg (26.0-34.0); Mean Corpuscular HGB Conc 32.7 g/dL (31.5-36.5); Mean Corpuscular Volume 88 fL (80-100); Mean Platelet Volume 9.5 fL (9.1-12.4); NEUTROPHILS ABSOLUTE AUTO 12.15 K/mm3 (1.96-9.15); NEUTROPHILS PERCENT AUTO 69 % (41-73); Platelet Count 558 K/mm3 (150-400); RDW Coefficient Variation 14.6 % (11.7-14.2); RDW Standard Deviation 46.2 fL (35.1-46.3); Red Blood Cell Count 5.15 M/mm3 (4.30-5.90); White Blood Cell Count 17.66 K/mm3 (4.00-11.30)
[2024-06-06 17:26] LABS: Ethanol (Alcohol), Blood, Med <3 mg/dL; Salicylate <1.7 mg/dL (2.8-20.0)
[2024-06-06 17:28] LABS: Alanine Aminotransfer (ALT/SGP 37 U/L (12-78); Albumin, Blood 3.1 g/dL (3.4-5.0); Albumin/Globulin Ratio 0.8 (0.8-1.8); Alk Phos 74 U/L (50-136); Anion Gap 9 mmol/L (3-11); Aspartate Aminotrans (AST/SGOT 19 U/L (12-37); Bilirubin, Total 0.7 mg/dL (0.1-1.0); Blood Urea Nitrogen 12 mg/dL (8-24); Bun/Creatinine Ratio 17.9 (12.0-20.0); CO2, Blood 31 mmol/L (21-32); Calcium, Blood 8.7 mg/dL (8.5-10.1); Chloride, Blood 106 mmol/L (98-108); Creatinine, Blood 0.67 mg/dL (0.60-1.20); Globulin, Blood 4.1 g/dL (2.2-4.0); Glomerular Filtration Rate 112 (60-); Glucose, Blood 90 mg/dL (70-99); Potassium, Blood 3.8 mmol/L (3.5-5.5); Sodium, Blood 142 mmol/L (136-145); Total Protein, Blood 7.2 g/dL (6.4-8.2)
[2024-06-06 17:48] LABS: Acetaminophen, Random <2.0 ug/mL (10.0-30.0)
[2024-06-06 18:38] LABS: Source, Urine Clean Catch
[2024-06-06 18:45] LABS: Appearance, Urine Clear (Clear); Bilirubin, Urine Neg (Neg); Blood, Urine Neg (Neg); Color, Urine Yellow (P-Yellow); Glucose Qualitative, Urine Neg (Neg); Ketones, Urine Neg (Neg); Leukocyte Esterase, Urine Neg (Neg); Nitrite, Urine Neg (Neg); Protein, Urine 1+ (Neg); Urobilinogen, Urine NORM (Normal)
[2024-06-06 19:09] LABS: U Amphetamine Screen DETECTED; U Barbituate Screen Not Detected; U Benzodiazapine Screen Not Detected; U Buprenorphine Screen Not Detected; U Cannabinoids Screen DETECTED; U Cocaine Screen Not Detected; U Methadone Screen Not Detected; U Methamphetamine Screen DETECTED; U Opiates Screen Not Detected; U Oxycodone Screen Not Detected; U Phencyclidine Screen Not Detected
[2024-06-06 19:18] LABS: Influenza A, PCR NEGATIVE (NEGATIVE); Influenza B, PCR NEGATIVE (NEGATIVE); Resp Syncytial Virus, PCR NEGATIVE (NEGATIVE); SARS-Cov-2 (COVID-19) PCR, MMC NEGATIVE (NEGATIVE)
[2024-06-06] MEDS ORDERED: LORazepam 2 MG/ML 1ML Injection IM ONE (19:55)
[2024-06-07] MEDS ORDERED: TRAZ150T57 PO (22:08)
== END 2024-06-07 21:14 ==
LOC: ER 15:59 → EOR 16:00
PROVIDERS: Student in an Organized Health Care Education/Training Program; ADMIT Student in an Organized Health Care Education/Training Program
DX: T40.412A Poisoning by fentanyl or fentanyl analogs, intentional self-harm, initial encounter (principal); R45.851 Suicidal ideations; F31.9 Bipolar disorder, unspecified; G89.29 Other chronic pain; F17.210 Nicotine dependence, cigarettes, uncomplicated; Z79.899 Other long term (current) drug therapy
CPT/HCPCS: 0241U; 36415; 71045; 80053; 80320; 85025; 93005; 93010; 96372; 99285-25; G0378; G0480; J2060

== ENCOUNTER 2024-09-08 04:19 | Observation (INO) | payer MEDICARE, OTHER ==
[~2024-09-08] VITALS: Ht 188 cm; Wt 136.1 kg
[~2024-09-08 04:19] MED LIST changes: +TRAZ150T57 PO
[2024-09-08 06:57] LABS: BASOPHILS ABSOLUTE AUTO 0.12 K/mm3 (0.00-0.23); BASOPHILS PERCENT AUTO 1 % (0-2); EOSINOPHILS ABSOLUTE AUTO 0.15 K/mm3 (0.00-0.68); EOSINOPHILS PERCENT AUTO 1 % (0-6); Hematocrit 46.4 % (37.0-53.0); Hemoglobin 15.6 g/dL (13.5-17.5); IMMATURE GRAN ABSOLUTE AUTO 0.08 K/mm3 (0.00-0.10); IMMATURE GRAN PERCENT AUTO 0 % (0-1); LYMPHOCYTES ABSOLUTE AUTO 3.47 K/mm3 (0.84-5.20); LYMPHOCYTES PERCENT AUTO 17 % (21-46); MONOCYTES PERCENT AUTO 12 % (4-13); Mean Corpuscular HGB 28.7 pg (26.0-34.0); Mean Corpuscular HGB Conc 33.6 g/dL (31.5-36.5); Mean Corpuscular Volume 86 fL (80-100); Mean Platelet Volume 9.2 fL (9.1-12.4); NEUTROPHILS ABSOLUTE AUTO 13.95 K/mm3 (1.96-9.15); NEUTROPHILS PERCENT AUTO 70 % (41-73); Platelet Count 346 K/mm3 (150-400); RDW Coefficient Variation 14.6 % (11.7-14.2); RDW Standard Deviation 45.5 fL (35.1-46.3); Red Blood Cell Count 5.43 M/mm3 (4.30-5.90); White Blood Cell Count 20.07 K/mm3 (4.00-11.30)
[2024-09-08 07:21] LABS: Ethanol (Alcohol), Blood, Med <3 mg/dL; Salicylate <1.7 mg/dL (2.8-20.0)
[2024-09-08 07:27] LABS: Alanine Aminotransfer (ALT/SGP 36 U/L (12-78); Albumin, Blood 3.5 g/dL (3.4-5.0); Albumin/Globulin Ratio 0.9 (0.8-1.8); Alk Phos 90 U/L (50-136); Anion Gap 9 mmol/L (3-11); Aspartate Aminotrans (AST/SGOT 33 U/L (12-37); Bilirubin, Total 0.8 mg/dL (0.1-1.0); Blood Urea Nitrogen 20 mg/dL (8-24); Bun/Creatinine Ratio 20.7 (12.0-20.0); CO2, Blood 23 mmol/L (21-32); Calcium, Blood 9.4 mg/dL (8.5-10.1); Chloride, Blood 106 mmol/L (98-108); Creatinine, Blood 0.97 mg/dL (0.60-1.20); Globulin, Blood 4.1 g/dL (2.2-4.0); Glomerular Filtration Rate 93 (60-); Glucose, Blood 131 mg/dL (70-99); Potassium, Blood 4.1 mmol/L (3.5-5.5); Sodium, Blood 134 mmol/L (136-145); Total Protein, Blood 7.6 g/dL (6.4-8.2)
[2024-09-08 07:30] LABS: Acetaminophen, Random <2.0 ug/mL (10.0-30.0)
[2024-09-08 09:07] LABS: Source, Urine Voided
[2024-09-08 09:10] LABS: Bilirubin, Urine Neg (Neg); Blood, Urine 3+ (Neg); Glucose Qualitative, Urine Neg (Neg); Ketones, Urine Neg (Neg); Leukocyte Esterase, Urine 2+ (Neg); Nitrite, Urine Neg (Neg); Protein, Urine 3+ (Neg); Urobilinogen, Urine NORM (Normal)
[2024-09-08 09:20] LABS: Appearance, Urine Hazy (Clear); Color, Urine Yellow (P-Yellow)
[2024-09-08 09:24] LABS: U Amphetamine Screen DETECTED; U Barbituate Screen Not Detected; U Benzodiazapine Screen Not Detected; U Buprenorphine Screen Not Detected; U Cannabinoids Screen DETECTED; U Cocaine Screen Not Detected; U Methadone Screen Not Detected; U Methamphetamine Screen DETECTED; U Opiates Screen Not Detected; U Oxycodone Screen Not Detected; U Phencyclidine Screen Not Detected
[2024-09-08 09:27] LABS: Hyaline Casts 50-100 /lpf (0-2); Mucus Mod (0-Heavy); Squamous Epithelial Cells Few /hpf (Few)
[2024-09-08 09:28] LABS: Bacteria Many /hpf; Calcium Oxalate Crystals Few /hpf; Red Blood Cells, Urine 25-50 /hpf (0-2); Spermatozoa Mod /hpf
[2024-09-08] MEDS ORDERED: TraZODone HCl 100 MG Tab PO PRN (15:20)
[2024-09-08] MEDS ORDERED: QUEtiapine Fumarate 200 MG Tab PO SCH (21:00)
[2024-09-08] MEDS ORDERED: OLANZapine 5 MG Tab PO SCH (21:00)
[2024-09-09 08:44] VITALS: BP 110/72
[2024-09-09] MEDS ORDERED: buPROPion HCL 150 MG TAB.SR.12H PO SCH (09:00)
[2024-09-09] MEDS ORDERED: QUETIAPINE FUM PO (12:00)
[2024-09-09] MEDS ORDERED: Benztropine Me0.5 MG PO (12:00)
[2024-09-09] MEDS ORDERED: PROP10 PO (12:00)
[2024-09-09] MEDS ORDERED: TRAZ100 PO (12:00)
== END 2024-09-09 23:00 | disposition home or self-care (01) ==
LOC: ER 04:19 → EOR 13:31
PROVIDERS: ADMIT Emergency Medicine
DX: F15.24 Other stimulant dependence with stimulant-induced mood disorder (principal); F15.229 Other stimulant dependence with intoxication, unspecified; S61.217A Laceration without foreign body of left little finger without damage to nail, initial encounter; S61.215A Laceration without foreign body of left ring finger without damage to nail, initial encounter; W25.XXXA Contact with sharp glass, initial encounter; E86.0 Dehydration; F31.9 Bipolar disorder, unspecified; F17.210 Nicotine dependence, cigarettes, uncomplicated; Z79.899 Other long term (current) drug therapy
CPT/HCPCS: 73120; 80053; 80320; 81001; 85025; 87086; 99285-25; A9270; G0378; G0480

== ENCOUNTER 2024-11-06 00:24 | Emergency (ER) | payer MEDICARE, OTHER ==
[~2024-11-06] VITALS: Ht 188 cm; Wt 136.0 kg
[~2024-11-06 00:24] MED LIST changes: +Benztropine Me0.5 MG PO; +QUETIAPINE FUM PO; +TRAZ100 PO
[2024-11-06 04:32] VITALS: BP 162/92
[2024-11-06] MEDS ORDERED: Trimethoprim/Sulfamethoxazole DS Tab PO ONE (05:05)
[2024-11-06] MEDS ORDERED: SULTRIDS PO (05:07)
== END 2024-11-06 06:00 | disposition home or self-care (01) ==
LOC: ER 00:24
DX: L03.115 Cellulitis of right lower limb (principal); F17.210 Nicotine dependence, cigarettes, uncomplicated; Z59.89 Other problems related to housing and economic circumstances; Z79.899 Other long term (current) drug therapy
CPT/HCPCS: 99282; A9270

== ENCOUNTER 2024-12-23 21:52 | Emergency (ER) | payer MEDICARE, OTHER ==
[~2024-12-23] VITALS: Ht 188 cm; Wt 136.1 kg
[~2024-12-23 21:52] MED LIST changes: +ACET500 PO; +LIDOCAINE1 EACH TOP; +SULTRIDS PO
[2024-12-23 21:59] VITALS: BP 165/103
[2024-12-23] MEDS ORDERED: Ketorolac Tromethamine 15mg Vial IM ONE (22:05)
== END 2024-12-23 23:16 | disposition left against medical advice (07) ==
LOC: ER 21:52
DX: M54.50 Low back pain, unspecified (principal); Z53.20 Procedure and treatment not carried out because of patient's decision for unspecified reasons
CPT/HCPCS: 72100

== ENCOUNTER 2025-04-12 18:15 | Emergency (ER) | payer MEDICARE, OTHER ==
[~2025-04-12] VITALS: Ht 188 cm; Wt 136.1 kg
[2025-04-12] MEDS ORDERED: Ketamine HCl 100 MG / ML 5ML Vial IV ONE (18:50)
[2025-04-12 18:57] LABS: BASOPHILS ABSOLUTE AUTO 0.09 K/mm3 (0.00-0.23); BASOPHILS PERCENT AUTO 1 % (0-2); EOSINOPHILS ABSOLUTE AUTO 0.06 K/mm3 (0.00-0.68); EOSINOPHILS PERCENT AUTO 0 % (0-6); Hematocrit 45.5 % (37.0-53.0); Hemoglobin 15.1 g/dL (13.5-17.5); IMMATURE GRAN ABSOLUTE AUTO 0.06 K/mm3 (0.00-0.10); IMMATURE GRAN PERCENT AUTO 0 % (0-1); LYMPHOCYTES ABSOLUTE AUTO 2.82 K/mm3 (0.84-5.20); LYMPHOCYTES PERCENT AUTO 19 % (21-46); MONOCYTES ABSOLUTE AUTO 1.89 K/mm3 (0.16-1.47); MONOCYTES PERCENT AUTO 12 % (4-13); Mean Corpuscular HGB Conc 33.2 g/dL (31.5-36.5); Mean Corpuscular Volume 83 fL (80-100); NEUTROPHILS ABSOLUTE AUTO 10.31 K/mm3 (1.96-9.15); NEUTROPHILS PERCENT AUTO 68 % (41-73); NRBC ABSOLUTE 0.00 K/mm3 (0.00-0.02); NRBC Auto 0.0 /100 WBC (0.0-0.2); Platelet Count 388 K/mm3 (150-400); RDW Coefficient Variation 14.9 % (11.7-14.2); RDW Standard Deviation 45.6 fL (35.1-46.3)
[2025-04-12 19:18] LABS: Alanine Aminotransfer (ALT/SGP 50.0 U/L (12-78); Albumin, Blood 3.6 g/dL (3.4-5.0); Albumin/Globulin Ratio 0.9 (0.8-1.8); Anion Gap 11.0 mmol/L (3-11); Aspartate Aminotrans (AST/SGOT 45.0 U/L (12-37); Bilirubin, Total 0.3 mg/dL (0.1-1.0); Blood Urea Nitrogen 15.0 mg/dL (8-24); CO2, Blood 24.0 mmol/L (21-32); Calcium, Blood 9.2 mg/dL (8.5-10.1); Chloride, Blood 102.0 mmol/L (98-108); Creatinine, Blood 0.81 mg/dL (0.60-1.20); Globulin, Blood 3.9 g/dL (2.2-4.0); Glucose, Blood 94.0 mg/dL (70-99); Potassium, Blood 4.1 mmol/L (3.5-5.5); Sodium, Blood 133.0 mmol/L (136-145); Total Protein, Blood 7.5 g/dL (6.4-8.2)
[2025-04-12] MEDS ORDERED: HYDROmorphone HCl/Pf 1MG SYR IV ONE ×2 (19:25→19:45)
[2025-04-12 19:31] VITALS: BP 166/108
[2025-04-12 19:34] LABS: Source, Urine Clean Catch
[2025-04-12 19:38] LABS: Bilirubin, Urine Neg (Neg); Color, Urine Yellow (P-Yellow); Glucose Qualitative, Urine Neg (Neg); Ketones, Urine Neg (Neg); Leukocyte Esterase, Urine Neg (Neg); Protein, Urine 1+ (Neg); Specific Gravity, Urine 1.010 (1.003-1.022); Urobilinogen, Urine NORM (Normal)
[2025-04-12 19:46] LABS: White Blood Cells, Urine 0-2 /hpf (0-5)
[2025-04-12] MEDS ORDERED: Ketorolac Tromethamine 15mg Vial IV ONE (20:05)
[2025-04-12 21:13] LABS: U Amphetamine Screen DETECTED; U Barbiturate Screen Not Detected; U Benzodiazapine Screen Not Detected; U Cannabinoids Screen DETECTED; U Cocaine Screen Not Detected; U Methadone Screen Not Detected; U Methamphetamine Screen DETECTED; U Opiates Screen Not Detected; U Phencyclidine Screen Not Detected
[2025-04-12 21:14] LABS: U Buprenorphine Screen Not Detected; U Oxycodone Screen Not Detected
[2025-04-12] MEDS ORDERED: Robaxin750 MG PO (22:42)
== END 2025-04-12 23:01 | disposition home or self-care (01) ==
LOC: ER 18:15
PROVIDERS: Student in an Organized Health Care Education/Training Program
DX: M62.830 Muscle spasm of back (principal); F17.210 Nicotine dependence, cigarettes, uncomplicated; Z79.899 Other long term (current) drug therapy
CPT/HCPCS: 74174; 80053; 81001; 83690; 85025; 96374-59; 96375-59; 99284-25; J1171; J1885; Q9967